=== PATIENT | female | born 1935 | race Caucasian/White ===

== ENCOUNTER 2024-08-08 10:30 | Outpatient (CLI) | payer MEDICARE, BC, SELFPAY | END 2024-08-08 10:31 | disposition home or self-care (01) | PROVIDERS: Visit Provider Nurse Practitioner Family | DX: T81.31XA Disruption of external operation (surgical) wound, not elsewhere classified, initial encounter (principal); K56.609 Unspecified intestinal obstruction, unspecified as to partial versus complete obstruction; E11.40 Type 2 diabetes mellitus with diabetic neuropathy, unspecified; I25.10 Atherosclerotic heart disease of native coronary artery without angina pectoris | CPT/HCPCS: 11042; 99202; G0463 ==

== ENCOUNTER 2024-08-15 11:08 | Outpatient (CLI) | payer MEDICARE, BC, SELFPAY | END 2024-08-15 11:09 | disposition home or self-care (01) | LOC: WOUND 11:08 | PROVIDERS: Visit Provider Nurse Practitioner Family | DX: T81.31XA Disruption of external operation (surgical) wound, not elsewhere classified, initial encounter (principal); E11.40 Type 2 diabetes mellitus with diabetic neuropathy, unspecified | CPT/HCPCS: 11042; 87070; 87186 ==

== ENCOUNTER 2024-08-22 10:42 | Outpatient (CLI) | payer MEDICARE, BC, SELFPAY | END 2024-08-22 10:43 | disposition home or self-care (01) | LOC: WOUND 10:43 | PROVIDERS: Visit Provider Nurse Practitioner Family | DX: T81.31XA Disruption of external operation (surgical) wound, not elsewhere classified, initial encounter (principal); E11.40 Type 2 diabetes mellitus with diabetic neuropathy, unspecified; I10 Essential (primary) hypertension | CPT/HCPCS: 11042 ==

== ENCOUNTER 2024-08-29 10:48 | Outpatient (CLI) | payer MEDICARE, BC, SELFPAY | END 2024-08-29 10:49 | disposition home or self-care (01) | LOC: WOUND 10:48 | PROVIDERS: Visit Provider Nurse Practitioner Family | DX: T81.31XA Disruption of external operation (surgical) wound, not elsewhere classified, initial encounter (principal); E11.40 Type 2 diabetes mellitus with diabetic neuropathy, unspecified; I10 Essential (primary) hypertension | CPT/HCPCS: 11042 ==

== ENCOUNTER 2024-09-05 11:11 | Outpatient (CLI) | payer MEDICARE, BC, SELFPAY | END 2024-09-05 11:12 | disposition home or self-care (01) | LOC: WOUND 11:11 | PROVIDERS: Visit Provider Nurse Practitioner Family | DX: T81.31XA Disruption of external operation (surgical) wound, not elsewhere classified, initial encounter (principal); E11.40 Type 2 diabetes mellitus with diabetic neuropathy, unspecified; I10 Essential (primary) hypertension | CPT/HCPCS: 11042 ==

== ENCOUNTER 2024-09-12 10:43 | Outpatient (CLI) | payer MEDICARE, BC, SELFPAY | END 2024-09-12 10:44 | disposition home or self-care (01) | LOC: WOUND 10:43 | PROVIDERS: Visit Provider Nurse Practitioner Family | DX: T81.31XA Disruption of external operation (surgical) wound, not elsewhere classified, initial encounter (principal); E11.40 Type 2 diabetes mellitus with diabetic neuropathy, unspecified; I10 Essential (primary) hypertension | CPT/HCPCS: G0463 ==

== ENCOUNTER 2024-09-19 10:48 | Outpatient (CLI) | payer MEDICARE, BC, SELFPAY | END 2024-09-19 10:49 | disposition home or self-care (01) | LOC: WOUND 10:48 | PROVIDERS: Visit Provider Nurse Practitioner Family | DX: T81.31XD Disruption of external operation (surgical) wound, not elsewhere classified, subsequent encounter (principal) | CPT/HCPCS: G0463 ==